=== PATIENT | male | born 1985 ===

== ENCOUNTER 2022-09-16 22:04 | Emergency (ER) | payer SELFPAY ==
[~2022-09-16] VITALS: Ht 172.7 cm; Wt 75.0 kg
[2022-09-16] MEDS ORDERED: normal saline 1000ml 1,000 ML IVB ONE (22:15)
[2022-09-16 22:45] VITALS: BP 115/63
== END 2022-09-16 22:46 | disposition home or self-care (01) ==
LOC: ER 22:05
DX: I95.9 Hypotension, unspecified (principal); R55 Syncope and collapse; G89.29 Other chronic pain; M54.50 Low back pain, unspecified
CPT/HCPCS: 82948; 93005; 99284; J7030